=== PATIENT | male | born 1930 | race Caucasian/White ===

== ENCOUNTER 2018-01-15 14:29 | Emergency (ER) | payer MEDICARE, OTHER ==
[~2018-01-15] VITALS: Ht 185.4 cm; Wt 75.6 kg
[~2018-01-15 14:29] MED LIST: AMLO5TAB4 PO; ASPI-611 PO; CAR2T PO; CHOL10002 PO; MULT-1085 PO; PRAV40TA3 PO
[2018-01-15 14:42] VITALS: BP 121/84
[2018-01-15] MEDS ORDERED: naproxen 500mg tablet PO ONE (15:25)
[2018-01-15] MEDS ORDERED: dexamethasone 4mg tablet PO ONE (15:25)
[2018-01-15] MEDS ORDERED: DICL100G15 TOP (15:26)
[2018-01-15] MEDS ORDERED: MELO7.5T12 PO (15:26)
== END 2018-01-15 15:46 | disposition home or self-care (01) ==
LOC: ER 14:33
DX: M70.22 Olecranon bursitis, left elbow (principal); I25.10 Atherosclerotic heart disease of native coronary artery without angina pectoris; I10 Essential (primary) hypertension; Z95.1 Presence of aortocoronary bypass graft; Z79.82 Long term (current) use of aspirin; Y93.89 Activity, other specified
CPT/HCPCS: 99283; J8540

== ENCOUNTER 2018-06-13 10:45 | Emergency (ER) | payer MEDICARE, OTHER ==
[~2018-06-13] VITALS: Ht 185.4 cm; Wt 76.0 kg
[~2018-06-13 10:45] MED LIST changes: +DICL100G15 TOP; +MELO7.5T12 PO
[2018-06-13 11:30] LABS: BASOPHILS # (AUTO) 0.1 X10'3 (0-0.2); BASOPHILS % (AUTO) 0.6 % (0-1); EOSINOPHILS # (AUTO) 0.1 X10'3 (0-0.9); EOSINOPHILS % (AUTO) 1.6 % (0-6); HEMATOCRIT 38.4 % (42.0-52.0); HEMOGLOBIN 12.7 g/dl (14.0-17.9); LYMPHOCYTES # (AUTO) 0.9 X10'3 (1.1-4.8); LYMPHOCYTES % (AUTO) 11.1 % (21-51); MEAN CORPUSCULAR HEMOGLOBIN 30.2 PG (27.0-31.0); MEAN CORPUSCULAR VOLUME 91.6 FL (78-98); MEAN PLATELET VOLUME 7.7 FL (7.4-10.4); MONOCYTES # (AUTO) 0.6 X10'3 (0-0.9); MONOCYTES % (AUTO) 7.5 % (2-12); NEUTROPHILS # (AUTO) 6.6 X10'3 (1.8-7.7); NEUTROPHILS % (AUTO) 79.2 % (42-75); PLATELET COUNT 213 X10'3 (140-440); RED CELL DISTRIBUTION WIDTH 14.1 % (11.5-14.5); WHITE BLOOD COUNT 8.4 X10'3 (4.5-11.0)
[2018-06-13 11:31] LABS: CLARITY,URINE SLIGHTLY CLOUDY (Clear); COLOR,URINE YELLOW (Yellow); GLUCOSE, URINE NEGATIVE (Neg); KETONES,URINE NEGATIVE (Neg); LEUKOCYTE ESTERASE ,URINE NEGATIVE (Neg); NITRITES, URINE NEGATIVE (Neg); OCCULT BLOOD,URINE TRACE-INTACT (Neg); PROTEIN,URINE NEGATIVE (Neg); UROBILINOGEN,URINE 0.2 E.U/dL (0.2-1.0)
[2018-06-13 11:39] LABS: UA COLLECTION TYPE CLN CATCH MIDSTREAM
[2018-06-13 11:40] LABS: BACTERIA,URINE 1+ /HPF (Neg); HYALINE CASTS 0-3 /LPF (NEGATIVE); MUCUS STRANDS FEW /LPF (Neg); SQUAMOUS EPITHELIAL CELL,UR FEW /LPF (FEW); WBC,URINE 0-4 /HPF (0-4)
[2018-06-13 11:43] LABS: PARTIAL THROMBOPLASTIN TIME 26 SECONDS (22-32); PROTHROMBIN TIME 10.4 SECONDS (9.0-12.0)
[2018-06-13 11:45] LABS: ALANINE AMINOTRANSFERASE 18 U/L (12-78); ALBUMIN 3.6 G/DL (3.4-5.0); ALBUMIN/GLOBULIN RATIO 1.2 (1.1-1.5); ALKALINE PHOSPHATASE 68 IU/L (46-116); ANION GAP 10 (8-16); ASPARTATE AMINO TRANSFERASE 19 U/L (10-37); BILIRUBIN,TOTAL 0.4 MG/DL (0.1-1.0); BLOOD UREA NITROGEN 33 MG/DL (7-18); BUN/CREATININE RATIO 16.4 (5.4-32.0); CALCIUM 8.6 MG/DL (8.5-10.1); CHLORIDE 105 MMOL/L (99-107); CREATININE 2.01 MG/DL (0.60-1.10); GLUCOSE 99 MG/DL (70-104); SODIUM 139 MMOL/L (135-145); TOTAL CARBON DIOXIDE 23.9 MMOL/L (24-32); TOTAL PROTEIN 6.6 G/DL (6.4-8.2); eGFR 32 ML/MIN
[2018-06-13] MEDS ORDERED: meclizine 12.5mg tablet PO ONE (12:40)
[2018-06-13 13:20] VITALS: BP 161/94
[2018-06-13] MEDS ORDERED: MECL-111 PO (13:20)
== END 2018-06-13 13:34 | disposition home or self-care (01) ==
LOC: ER 10:46
DX: R42 Dizziness and giddiness (principal); I25.10 Atherosclerotic heart disease of native coronary artery without angina pectoris; I10 Essential (primary) hypertension; Z95.1 Presence of aortocoronary bypass graft; Z98.890 Other specified postprocedural states; Z79.899 Other long term (current) drug therapy
CPT/HCPCS: 36415; 71045; 80053; 81001; 84484; 85025; 85610; 85730; 93005; 99284; J8597

== ENCOUNTER 2019-11-04 08:27 | Emergency (ER) | payer MEDICARE ==
[~2019-11-04] VITALS: Ht 182.9 cm; Wt 72.0 kg
[~2019-11-04 08:27] MED LIST changes: +IBUP-1985 PO; +MECL-159 PO
[2019-11-04 08:38] VITALS: BP 103/61
== END 2019-11-04 10:40 | disposition home or self-care (01) ==
LOC: ER 08:28
DX: S63.613A Unspecified sprain of left middle finger, initial encounter (principal); I25.10 Atherosclerotic heart disease of native coronary artery without angina pectoris; I10 Essential (primary) hypertension; Z95.1 Presence of aortocoronary bypass graft; Z98.890 Other specified postprocedural states; Z72.89 Other problems related to lifestyle; Z79.82 Long term (current) use of aspirin; Z79.899 Other long term (current) drug therapy; W01.0XXA Fall on same level from slipping, tripping and stumbling without subsequent striking against object, initial encounter; Y93.89 Activity, other specified; Y92.89 Other specified places as the place of occurrence of the external cause; Y99.8 Other external cause status
CPT/HCPCS: 73130; 99284

== ENCOUNTER 2020-03-27 14:11 | Outpatient (CLI) | payer MEDICARE | END 2020-03-27 23:59 | disposition home or self-care (01) | LOC: VAS 14:11 | PROVIDERS: ATTEND Family Medicine | DX: S80.11XS Contusion of right lower leg, sequela (principal); S89.91XS Unspecified injury of right lower leg, sequela; X58.XXXS Exposure to other specified factors, sequela | CPT/HCPCS: 93971 ==

== ENCOUNTER 2021-02-10 14:40 | Outpatient (CLI) | payer MEDICARE | END 2021-02-10 23:59 | disposition home or self-care (01) | LOC: RT 14:40 | PROVIDERS: ATTEND Family Medicine | DX: M48.54XA Collapsed vertebra, not elsewhere classified, thoracic region, initial encounter for fracture (principal); J90 Pleural effusion, not elsewhere classified; R91.8 Other nonspecific abnormal finding of lung field; J44.9 Chronic obstructive pulmonary disease, unspecified; J84.10 Pulmonary fibrosis, unspecified; R53.82 Chronic fatigue, unspecified; R06.02 Shortness of breath | CPT/HCPCS: 71046; 94010; 94727; 94729 ==